=== PATIENT | male | born 1995 | race African-American/Black ===

== ENCOUNTER 2020-07-03 23:53 | Emergency (ER) | payer SELFPAY ==
[~2020-07-03] VITALS: Ht 175.3 cm; Wt 78.0 kg
[2020-07-03 23:56] VITALS: BP 125/90
[2020-07-04] MEDS ORDERED: ACETAMINOPHEN 325MG TABLET PO ONE (01:00)
== END 2020-07-04 02:24 | disposition home or self-care (01) ==
LOC: ER 23:53
DX: S01.112A Laceration without foreign body of left eyelid and periocular area, initial encounter (principal); R42 Dizziness and giddiness; R07.89 Other chest pain; V49.88XA Car occupant (driver) (passenger) injured in other specified transport accidents, initial encounter; Y93.89 Activity, other specified; Y92.89 Other specified places as the place of occurrence of the external cause; Y99.8 Other external cause status
CPT/HCPCS: 71045; 93005; 99285